=== PATIENT | male | born 1965 | race Caucasian/White ===

== ENCOUNTER 2023-05-17 14:27 | Emergency (ER) | payer OTHER, SELFPAY ==
[2023-05-17 14:29] VITALS: BP 159/84
--- NOTE | 2023-05-17 14:56 | ED.GENMED ---
History of Present Illness
General
Chief Complaint: Musculo-Skeletal Complaint
Source: patient
Time Seen by Provider: 05/17/23 14:38
Travel History
Have you had any contact with someone who has COVID-19?: No
Do you have any symptoms of coronavirus? Fever > 100 degrees, chills, cough, shortness of breath, sore throat, loss of taste or smell, muscle aches, or headache?: No
History of Present Illness
History of Present Illness:
58-year-old male presenting to the emergency department for evaluation of left great toe pain along the medial most aspect at the level of the first MTP joint that started a few days ago, not really worsening in nature but persistent prompting him
to come to the ER for further evaluation today. He does note that he had been helping somebody move and was moving some heavy boxes and tripped but states he does not feel any pain following the accidental injury so he is not sure if this is
related. Denies any previous history of injury or surgery. No other concerns.
Past History
Past History
ED Past Medical History: GERD and Psychiatric
ED Past Surgical History: Other
Social History
Tobacco: Non-smoker
Alcohol: None
Drug: None
Personal:
Living: with family
Review of Systems
Review of Systems
All Other Systems: ROS reviewed and negative except as documented in HPI and ROS
Phy Exam
Physical Exam
Physical Exam:
GENERAL: Alert , in no apparent distress
EYE: conjunctiva clear
Head: Normocephalic atraumatic
NECK: Supple,
ENT: mmm.
LUNGS: no acute respiratory distress
NEUROLOGICAL: Alert and oriented
SKIN: Warm and dry, mild erythema at the level of the first MTP joint on the left foot
MUSCULOSKELETAL: Left lower extremity: Moderate tenderness to palpation over the first MTP joint of the left foot. Remainder of extremity is otherwise within normal limits and neurovascularly intact.
PSYCH: Normal and appropriate interaction.
Scores
Heart Failure Risk
Heart Failure Risk Score: Not Applicable
Heart Score for Chest Pain Patients
STEMI patient?: Not applicable
Withdrawal Assessment of Alcohol
Withdrawal Assessment Completed?: Not applicable
Course
Orders/Labs/Results
Orders:
Orders
05/17/23 14:33
Foot, Left 3 View [CR Foot - Left Min 3 Views] Urgent
Comment:
Reason For Exam: pain, swelling
05/17/23 14:55
Naproxen [Naprosyn] 500 mg PO NOW STA
Vital Signs
Initial and Last Documented VS:
Initial Vital Signs
Temp Pulse Resp BP Pulse Ox
99 F 76 18 159/84 98
05/17/23 14:29 05/17/23 14:29 05/17/23 14:29 05/17/23 14:29 05/17/23 14:29
Last Documented Vital Signs
Temp Pulse Resp BP Pulse Ox
99 F 76 18 159/84 98
05/17/23 14:29 05/17/23 14:29 05/17/23 14:29 05/17/23 14:29 05/17/23 14:29
MDM/Problems Addressed
Differential Diagnosis Includes:
Gout, fracture, sprain, cellulitis
MDM/Problems Addressed:
58-year-old male present emergency department for evaluation of first MTP joint swelling and pain for the last few days on the left foot. X-ray was ordered from triage and does not show any fracture. I ultimately suspect gout is most likely
diagnosis. Patient states that he does eat a mostly vegan diet, minimal alcohol, no medications that would preclude him from getting gout. Does note he has a family history of gout. Patient does note that a few years ago he did have a possible
upper GI bleed and had an endoscopy performed but did not show any specific cause for the bleeding. Notes he was not told that he could not take NSAIDs. He does take a daily GI medication. Will trial short-term course of naproxen 500 mg twice
daily. Advise close follow-up with primary care physician. Stable for discharge home.
*Radiology
Radiology exam reviewed: preliminary read by ED provider (No fracture)
*Pulse Oximetry
Patient hypoxic: no
*Critical Care Note
Total Time (30-74mins, 75-104mins- exclusive of procedures): Not Applicable
ED Attending Note
-
Portions of this chart may have been created with voice recognition software.� Occasional wrong word or��sound alike� substitutions may have occurred due to the inherent limitations of voice recognition software.
Discharge Plan
Departure
Patient Disposition: Home (Routine Discharge)
Date of Disposition: 05/17/23
Time of Disposition: 14:56
Patient with high blood pressure during this ER visit?: Yes
Discharge Problem:
Gout
Instructions: Gout (DC)
Prescriptions:
New
naproxen 500 mg tablet
500 mg PO BID PRN (Reason: Pain) Qty: 20 0RF
Interventions
Interventions:
*Risk Screen - Suicide Last Done: 05/17/23 14:29
*General Assessment Last Done: 05/17/23 14:29
*Neglect/Abuse Screening Last Done: 05/17/23 14:29
ED-Musculoskeletal Assessment Last Done: 05/17/23 14:48
[2023-05-17] MEDS: NAPROSYN 500 MG PO (15:01)
== END 2023-05-17 15:10 | disposition home or self-care (01) ==
LOC: EMR 14:27
PROVIDERS: EMERGENCY PHYSICIAN Emergency Medicine; FAMILY PHYSICIAN Internal Medicine
DX: M10.9 Gout, unspecified (principal); M79.675 Pain in left toe(s); W18.49XA Other slipping, tripping and stumbling without falling, initial encounter; Y93.89 Activity, other specified; K21.9 Gastro-esophageal reflux disease without esophagitis
CPT/HCPCS: 99283; 73630